=== PATIENT | female | born 1995 ===

== ENCOUNTER 2017-10-04 13:00 | Emergency (ER) | payer OTHER ==
[2017-10-04] MEDS ORDERED: Ketorolac INJ* 60 MG/2 ML VIAL IM ONE (15:43)
--- NOTE | 2017-10-04 15:52 | UC ---
Neck Pain HPI - HPI Summary HPI Summary: PT HERE WITH . C/O DIFFUSE NECK PAIN FOR SEVERAL MONTHS. DOES A LOT OF HEAVY LIFTING AT WORK. DENIES ANY DISCRETE TRAUMA. OVER THE PAST WEEK IT HAS BECOME PROGRESSIVELY WORSE. PAST 2 DAYS IS UNABLE TO BEND HER NECK/TURN HER HEAD. HEAD IS TILTED TO THE LEFT. STATES SHE HAS HAD SOME INTERMITTENT TINGLING IN LEFT ARM. DENIES ANY FEVER, KIM, MALAISE, MYALGIAS, ST, CONSTITUTIONAL SX. - History of Current Complaint Chief Complaint: UCGeneralIllness Stated Complaint: NECK PAIN Time Seen by Provider: 10/04/17 15:28 Hx Obtained From: Patient, Family/Clinical Evaluator - Hx Last Menstrual Period: 09/21/17 Onset/Duration Of Injury/Symptoms: Weeks Mechanism Of Injury: No Known Trauma Timing: Constant Onset/Duration: Lasting Weeks, Worse Since - 1 WEEK AGO Severity: Moderate Pain Intensity: 9 Pain Scale Used: 0-10 Numeric Location: Discrete At: - NECK Character: Sharp Aggravating Factors: Movement Alleviating Factors: Nothing Associated Signs & Symptoms: Positive: Paresthesia - LEFT ARM - Allergies/Home Medications Allergies/Adverse Reactions: Allergies Allergy/AdvReac Type Severity Reaction Status Date / Time amoxicillin Allergy Hives/Diff. Verified 10/04/17 13:57 Breathing/I tching Penicillins Allergy Hives Verified 10/04/17 13:57 PMH/Surg Hx/FS Hx/Imm Hx Previously Healthy: Yes - Surgical History Surgical History: Yes Surgery Procedure, Year, and Place: appendectomy - Family History Known Family History: Negative: Hypertension - Social History Alcohol Use: None Substance Use Type: None Smoking Status (MU): Never Smoked Tobacco Review Of Systems Constitutional: Positive: Negative ENT: Positive: Negative Respiratory: Positive: Negative Cardiovascular: Positive: Negative Gastrointestinal: Positive: Negative Musculoskeletal: Positive: Arthralgia, Decreased ROM, Myalgia All Other Systems Reviewed And Are Negative: Yes Physical Exam Triage Information Reviewed: Yes Appearance: Well-Nourished, Pain Distress - MILD Vital Signs: Initial Vital Signs Temp 98.4 F 10/04/17 13:54 Pulse 73 10/04/17 13:54 Resp 14 10/04/17 13:54 BP 122/67 10/04/17 13:54 Pulse Ox 100 10/04/17 13:54 Vital Signs Reviewed: Yes Eyes: Positive: Conjunctiva Clear ENT: Positive: Hearing grossly normal Neck: Positive: No Lymphadenopathy, Other: - MILDLY TENDER TRAPEZIUS MUSCLES. PAIN RIGHT SCM. Respiratory: Positive: No respiratory distress, No accessory muscle use Cardiovascular: Positive: Pulses Normal Abdomen Description: Positive: Soft Musculoskeletal: Positive: No Edema, ROM Limited @ - NECK, Other: - TTP BILAT TRAP MUSCLES, RIGHT SCM. HEAD TILTED TO LEFT, CHIN DEVIATED TO RIGHT Neurological: Positive: Alert Psychological: Positive: Normal Response To Family, Age Appropriate Behavior Skin: Negative: rashes Diagnostics - Radiology C-SPINE XRAYS Xray Interpretation: Positive (See Comments) - MILD DEGENERATIVE DISC DISEASE Radiology Interpretation Completed By: Radiologist Neck Pain Course/Dx - Differential Dx/Diagnosis Provider Diagnoses: CERVICAL STRAIN/TORTICOLLIS Discharge - Discharge Plan Condition: Stable Disposition: HOME Prescriptions: Cyclobenzaprine TAB* [Flexeril TAB*] 10 mg PO BID PRN #30 tab PRN Reason: Pain Ketorolac TAB * [Toradol TAB *] 10 mg PO Q6H PRN #20 tab PRN Reason: Pain Patient Education Materials: Cervical Strain (ED), Degenerative Disc Disease ( ED) Forms: *Work Release Referrals: Meenu Luna MD [Primary Care Provider] - If Needed Additional Instructions: WILL TREAT MUSCLE STRAIN WITH MUSCLE RELAXER AND ANTI-INFLAMMATORY. XRAY SHOWED MILD DEGENERATIVE DISC DISEASE. BE SURE TO GO THROUGH SLOW RANGE OF MOTION AND STRETCHING EXERCISES DAILY YOU ARE ABLE TO PREVENT STIFFENING UP AND MAKING THE DISCOMFORT WORSE. REST, HEAT, MASSAGE. SEEK FOLLOW-UP WITH YOUR PCP IF NOT IMPROVING EXPECTED.
--- NOTE | 2017-10-04 16:30 | RAD ---
INDICATION: Neck pain and decreased range of motion. COMPARISON: There are no prior studies available for comparison. TECHNIQUE: 5 views of the cervical spine were obtained including lateral, oblique, AP, open-mouth odontoid views. FINDINGS: C1-C7 are visualized. There is straightening of the cervical spine with loss of the normal cervical lordosis. No prevertebral soft tissue swelling or fracture is seen. There is mild degenerative disc disease at the C5-C6 level. Neural foramen appear patent bilaterally at all levels. IMPRESSION: MILD DEGENERATIVE DISC DISEASE.
[2017-10-04 16:44] VITALS: BP 101/49
== END 2017-10-04 17:19 | disposition home or self-care (01) ==
LOC: UCCORT 13:00
DX: M43.6 Torticollis (principal); S16.1XXA Strain of muscle, fascia and tendon at neck level, initial encounter; X50.0XXA Overexertion from strenuous movement or load, initial encounter; Y93.89 Activity, other specified; Y92.9 Unspecified place or not applicable; Y99.0 Civilian activity done for income or pay
CPT/HCPCS: 72050; 96372; 99202; G0463; J1885